=== PATIENT | male | born 1940 | race Two or more races ===

== ENCOUNTER 2020-08-26 21:09 | Inpatient (IN) | payer MEDICARE ==
[~2020-08-26] VITALS: Ht 172.7 cm; Wt 93.4 kg
[2020-08-26 21:43] LABS: BASOPHILS % (AUTO) 0.6 % (0-1); EOSINOPHILS # (AUTO) 0.2 X10'3 (0-0.9); EOSINOPHILS % (AUTO) 2.5 % (0-6); HEMATOCRIT 42.9 % (42.0-52.0); HEMOGLOBIN 14.6 g/dl (14.0-17.9); LYMPHOCYTES # (AUTO) 1.6 X10'3 (1.1-4.8); LYMPHOCYTES % (AUTO) 25.5 % (21-51); MEAN CORPUSCULAR HEMOGLOBIN 32.5 PG (27.0-31.0); MEAN CORPUSCULAR HGB CONC 34.1 g/dL (33.0-36.5); MEAN CORPUSCULAR VOLUME 95.3 FL (78-98); MEAN PLATELET VOLUME 8.7 FL (7.4-10.4); MONOCYTES # (AUTO) 0.6 X10'3 (0-0.9); MONOCYTES % (AUTO) 9.4 % (2-12); PLATELET COUNT 197 X10'3 (140-440); RED CELL DISTRIBUTION WIDTH 13.4 % (11.5-14.5); WHITE BLOOD COUNT 6.4 X10'3 (4.5-11.0)
[2020-08-26 22:05] LABS: ALBUMIN 3.5 G/DL (3.4-5.0); ALBUMIN/GLOBULIN RATIO 1.1 (1.1-1.5); ALKALINE PHOSPHATASE 113 IU/L (46-116); ANION GAP 10 (8-16); ASPARTATE AMINO TRANSFERASE 25 U/L (10-37); BILIRUBIN,TOTAL 1.3 MG/DL (0.1-1.0); BLOOD UREA NITROGEN 15 MG/DL (7-18); BUN/CREATININE RATIO 15.6 (5.4-32.0); CHLORIDE 106 MMOL/L (99-107); CREATININE 0.96 MG/DL (0.60-1.10); GLUCOSE 134 MG/DL (70-104); SODIUM 143 MMOL/L (135-145); TOTAL CARBON DIOXIDE 26.8 MMOL/L (24-32); TOTAL PROTEIN 6.8 G/DL (6.4-8.2); eGFR 75 ML/MIN
[2020-08-26 22:16] LABS: ALANINE AMINOTRANSFERASE 42 U/L (12-78); CALCIUM 9.5 MG/DL (8.5-10.1)
[2020-08-26 22:18] LABS: POTASSIUM 2.9 MMOL/L (3.5-5.1)
[2020-08-26] MEDS ORDERED: potassium Cl 20 mEq SR tablet PO STA (22:33)
[2020-08-26] MEDS ORDERED: acetaminophen 325mg tablet PO ONE (22:35)
[2020-08-26] MEDS ORDERED: magnesium 2GM in 50ml NS 50 ML IV ONE (22:35)
[2020-08-26 23:07] LABS: MAGNESIUM 2.2 MG/DL (1.5-2.4)
[2020-08-27] MEDS ORDERED: CYAN100020 SL (00:07)
[2020-08-27] MEDS ORDERED: LOP12.5T PO (00:15)
[2020-08-27] MEDS ORDERED: METF500T PO (00:15)
[2020-08-27] MEDS ORDERED: SYN0.088T PO (00:15)
[2020-08-27] MEDS ORDERED: TERA2CAP4 PO (00:15)
[2020-08-27] MEDS ORDERED: SIMV-42 PO (00:15)
[2020-08-27] MEDS ORDERED: HYDR25TA5 PO (00:15)
[2020-08-27] MEDS ORDERED: morphine 2 MG/ML inj. syringe IV PRN ×2 (00:35)
[2020-08-27] MEDS ORDERED: potassium Cl 20 mEq SR tablet PO PRN ×2 (00:35)
[2020-08-27] MEDS ORDERED: mag hydrox/Alum hydrox/simeth 30ml oral suspension PO PRN (00:35)
[2020-08-27] MEDS ORDERED: HYDROcodone/acetaminophen 5mg/325mg tablet PO PRN (00:35)
[2020-08-27] MEDS ORDERED: HYDROmorphone inj. 0.5 MG/0.5 ML DISP.SYRIN IV PRN (00:35)
[2020-08-27] MEDS ORDERED: magnesium Cl slow-release 64mg tablet PO PRN (00:35)
[2020-08-27] MEDS ORDERED: potassium Cl 40MEQ/1/2NS 520ml 520 ML IV PRN ×2 (00:35)
[2020-08-27] MEDS ORDERED: ondansetron/PF 4mg/2ml inj IV PRN (00:35)
[2020-08-27] MEDS ORDERED: magnesium 2GM in 50ml NS 50 ML IV PRN (00:35)
[2020-08-27] MEDS ORDERED: MESSAGE TO PHARMACY PO ONE (00:35)
[2020-08-27] MEDS ORDERED: HYDROcodone/acetaminophen 10/325mg tab PO PRN (00:35)
[2020-08-27] MEDS ORDERED: insulin Lispro (HumaLOG) vial - multi-dose SQ SCH (00:35)
[2020-08-27] MEDS ORDERED: dextrose 50%-water 50ml dispensing syringe IV PRN ×2 (00:35)
[2020-08-27] MEDS ORDERED: acetaminophen 325mg tablet PO PRN ×2 (00:35)
[2020-08-27] MEDS ORDERED: normal saline 1000ml 1,000 ML IV SCH (00:35)
[2020-08-27] MEDS ORDERED: dextrose ORAL solution 15 GM/59 ML bottle PO PRN ×2 (00:35)
[2020-08-27] MEDS ORDERED: magnesium hydroxide 30ml (MOM) UD suspension PO PRN (00:35)
[2020-08-27] MEDS ORDERED: glucagon, human recombinant 1mg kit SUBCUT PRN (00:35)
[2020-08-27] MEDS ORDERED: magnesium 4gm in 100ml NS 100 ML IV PRN (00:35)
--- NOTE | 2020-08-27 03:00 | NUR ---
Patient in room PCU 3024. I have received report from [facility] and had the opportunity to ask questions and assume patient care.
[2020-08-27 03:31] VITALS: BP 133/71
--- NOTE | 2020-08-27 06:00 | NUR ---
Patient in room PCU 3024. I have received report from Em[facility] and had the opportunity to ask questions and assume patient care.
--- NOTE | 2020-08-27 06:28 | NUR ---
Problems reprioritized. Patient report given, questions answered & plan of care reviewed with MILAN RN.
[2020-08-27 07:00] VITALS: BP 153/71
[2020-08-27] MEDS ORDERED: K and/or MAG REPLACEMENT MC SCH (08:00)
[2020-08-27] MEDS ORDERED: heparin, porcine 5000 units/ml vial SQ SCH (08:00)
[2020-08-27] MEDS ORDERED: METF-516 PO (10:22)
[2020-08-27 10:43] VITALS: BP_SYST 147; BP_SYST 152; BP_DIAS 73; BP_DIAS 79
[2020-08-27 11:00] VITALS: BP 161/79
--- NOTE | 2020-08-27 11:25 | NUR ---
Paged Dr Bull: PAGER ID: [phone] MESSAGE: [id number] Velacanales - Pt had negative orthostatics. Pt ambulated around unit w/PT & was asymptomatic, tolerated well. Has received 40mEq of K for a level of 2.9 this AM. Do you want 2nd bag to be given before discharge? Thanks! Cherise [phone]
--- NOTE | 2020-08-27 13:21 | NUR ---
Reviewed pt discharge instructions and education with patient and his son. Printed out instructions in polish per his preference. Questions answered, pt and son verbalize understanding. Removed IV and tele box. Pt went home with his watch still on. Pt dressed in clothes from home and taken downstairs by RN via wheelchair to be driven home in private vehicle by his son.
[2020-08-27] MEDS ORDERED: insulin glargine (Lantus) pen - multi-dose SQ SCH (21:00)
--- NOTE | 2020-08-31 13:33 | NUR ---
CASE MANAGEMENT DISCHARGE FOLLOW UP: T/c to pt, no answer, left message requesting callback.
== END 2020-08-27 13:25 | disposition home or self-care (01) | DRG 923 ==
LOC: ER 21:10 → ED HOLD 08-27 00:32 → EDBEDREQ 08-27 02:39 → PCU 3S 08-27 03:10
PROVIDERS: ADMIT Internal Medicine; ATTEND Internal Medicine
DX: T67.01XA Heatstroke and sunstroke, initial encounter (principal); E03.9 Hypothyroidism, unspecified; E11.9 Type 2 diabetes mellitus without complications; E78.00 Pure hypercholesterolemia, unspecified; E78.5 Hyperlipidemia, unspecified; E87.6 Hypokalemia; I10 Essential (primary) hypertension; W18.39XA Other fall on same level, initial encounter; R55 Syncope and collapse; M25.512 Pain in left shoulder; S49.92XA Unspecified injury of left shoulder and upper arm, initial encounter; M54.2 Cervicalgia; M54.9 Dorsalgia, unspecified; S01.91XA Laceration without foreign body of unspecified part of head, initial encounter; Z79.84 Long term (current) use of oral hypoglycemic drugs; Z79.899 Other long term (current) drug therapy; Y93.89 Activity, other specified; Y92.098 Other place in other non-institutional residence as the place of occurrence of the external cause; Y99.8 Other external cause status
CPT/HCPCS: 36415; 70450; 72125; 73030; 80053; 82948; 83036; 83735; 85025; 87081; 93005; 93306; 93880; 97116; 97161; 97530; 99285; G0378; J1644; J1815; J3475; J3480; J7030